=== PATIENT | female | born 2005 | race African-American/Black ===

== ENCOUNTER 2023-05-10 22:10 | Emergency (ER) | payer OTHER, SELFPAY ==
[2023-05-10] MEDS ORDERED: Bacitracin 1 PK ONE (22:22)
== END 2023-05-10 23:10 | disposition home or self-care (01) ==
LOC: NAV ERS 22:10
DX: S00.83XA Contusion of other part of head, initial encounter (principal); S00.81XA Abrasion of other part of head, initial encounter; V43.52XA Car driver injured in collision with other type car in traffic accident, initial encounter; W22.11XA Striking against or struck by driver side automobile airbag, initial encounter; Y93.89 Activity, other specified; Y92.410 Unspecified street and highway as the place of occurrence of the external cause
CPT/HCPCS: 99283